=== PATIENT | female | born 1960 | race Two or more races ===

== ENCOUNTER 2025-01-28 08:25 | Outpatient (CLI) | payer OTHER | END 2025-01-28 08:28 | disposition home or self-care (01) | LOC: SONOGRAMA 08:25 | PROVIDERS: ATTEND Pathology Anatomic Pathology & Clinical Pathology | DX: D34 Benign neoplasm of thyroid gland (principal); E06.3 Autoimmune thyroiditis; C73 Malignant neoplasm of thyroid gland ==

== ENCOUNTER 2025-02-12 07:30 | Inpatient (IN) | payer OTHER ==
[~2025-02-12] VITALS: Ht 157.5 cm; Wt 59.0 kg
[2025-02-12 08:48] LABS: BASO % 0.9 % (0.1-1.2); EOS # 0.08 (0.04-0.54); EOS % 1.8 % (0.7-7.0); LYMPH # 1.44 (1.18-3.74); LYMPH % 31.9 % (19.3-53.1); MEAN PLATELET VOLUME 10.30 fl (9.4-12.4); MONO # 0.38 (0.24-0.82); MONO % 8.4 % (4.7-12.5); NEUT # 2.56 (1.56-6.13); NEUT % 56.8 % (34.0-71.1); RED CELL DISTRIBUTION WIDTH 13.5 % (11.6-14.4)
[2025-02-12 08:49] LABS: URINE APPEARANCE Clear; URINE BILIRRUBIN Negative (NEGATIVE); URINE BLOOD Negative; URINE COLOR Yellow; URINE GLUCOSE Negative (NEGATIVE); URINE KETONE Negative (NEGATIVE); URINE LEUKOCYTE Negative; URINE NITRATE Negative; URINE PROTEIN Negative (NEGATIVE); URINE UROBILINOGEN 1.0 E.U./dl
[2025-02-12 08:51] LABS: URINE BACTERIA 5.9 uL (0.0-1933); URINE EPITHELIAL CELLS 4.2 uL (0.0-38.8); URINE RBC 2.1 uL (0.0-20.8); URINE WBC 4.2 uL (0.0-23.2)
[2025-02-12 08:52] LABS: URINE CAST 0.00 uL (0.0-1.40)
[2025-02-12] MEDS ORDERED: IRBESARTAN75 MG PO (08:58)
[2025-02-12] MEDS ORDERED: LIPITOR20 MG PO (08:59)
[2025-02-12] MEDS ORDERED: FENOFIBRATE40 MG PO (09:00)
[2025-02-12 09:01] VITALS: BP 120/70
[2025-02-12 09:07] VITALS: BP 126/76
[2025-02-12 09:15] LABS: INR 0.98
[2025-02-12 09:58] LABS: ALT/SGPT 46.0 U/L (12-78); AST/SGOT 31.0 U/L (15-37); BILIRUBIN TOTAL 0.67 mg/dL (0.3-1.2); BUN CREA RATIO 23.0 (7.0-25.0); CREATININE SERUM 0.69 mg/dL (0.55-1.02); GFR 85.12; GLOBULINA 3.6 G/DL (2.4-3.5); GLUCOSE FASTING 108.0 mg/dL (65-100); OSMOLALITY SERUM 287.0 MOSM/KG (275-295)
[2025-02-25] MEDS ORDERED: DEXAMETHASONE SODIUM PHOSPHATE 4 MG/ML VIAL IV ONE (08:15)
[2025-02-25] MEDS ORDERED: ACETAMINOPHEN 500 MG GEL..CAP PO SCH (09:00)
[2025-02-25] MEDS ORDERED: ENALAPRILAT DIHYDRATE 1.25 MG/ML VIAL IV PRN (09:00)
[2025-02-25] MEDS ORDERED: ONDANSETRON HCL 2 MG/ML VIAL IV PRN (09:00)
[2025-02-25] MEDS ORDERED: TRAMADOL HCL 50 MG TABLET PO SCH (09:00)
[2025-02-25] MEDS ORDERED: ACETAMINOPHEN 500 MG GEL..CAP PO ONE (15:46)
[2025-02-25] MEDS ORDERED: CYCLOBENZAPRINE HCL 5 MG TABLET PO SCH (17:00)
[2025-02-25] MEDS ORDERED: LIDOCAINE HCL 30 ML,MAG HYDROX/ALUMINUM HYD/SIMETH 30 ML,DIPHENHYDRAMINE HCL 75 MG MM SCH (17:00)
[2025-02-25 18:20] VITALS: BP 126/76
[2025-02-25] MEDS ORDERED: PANTOPRAZOLE SODIUM 40 MG/VIAL VIAL IV PUSH SCH (21:00)
[2025-02-26] VITALS: BP 99/56
[2025-02-26 08:52] VITALS: BP 118/62
[2025-02-26] MEDS ORDERED: SUGAMMADEX SODIUM 200 MG/2 ML VIAL IV ONE (14:00)
[2025-02-26] MEDS ORDERED: DEXAMETHASONE SODIUM PHOSPHATE 4 MG/ML VIAL IV ONE (14:00)
== END 2025-02-26 15:19 | disposition home or self-care (01) | DRG 627 ==
LOC: SURH 02-25 07:30 → O/R 02-25 09:00 → SURH 02-25 09:30 → OB/GYN 02-25 16:43
PROVIDERS: ADMIT Surgery; ATTEND Surgery
PROC: 0GBL0ZZ Excision of Right Superior Parathyroid Gland, Open Approach (ICD-10-PCS; 2025-02-25)
PROC: 0GBP0ZZ Excision of Left Inferior Parathyroid Gland, Open Approach (ICD-10-PCS; principal; 2025-02-25 09:30)
DX: E21.0 Primary hyperparathyroidism (principal)